=== PATIENT | female | born 1990 | race Caucasian/White ===

== ENCOUNTER 2019-01-22 23:58 | Emergency (ER) | payer OTHER, SELFPAY ==
[2019-01-22 23:59] VITALS: BP 187/100; PULSE 110; RESP 18; TEMP 36.6; O2SAT 98; BMI 23.8
[2019-01-23] VITALS (7 sets, daily range): BP systolic 124–161; BP diastolic 81–106; PULSE 84–106; RESP 16–21; O2SAT 98–100
--- NOTE | 2019-01-23 00:28 | RAD_ITS ---
HISTORY: PATIENT REACHED BACK BEHIND HER AND FELT SHOULDER POP, HX OF DISLOCATION IN DECEMBER 2018 EXAMINATION/TECHNIQUE: XR left shoulder 3 views 0103 hrs. COMPARISON: None FINDINGS: Brassier clothing artifact Anterior dislocation of the left humeral head. No associated fracture is seen. Left AC joint appears preserved. No bony lesions seen. RAD/Shoulder min 2 Views IMPRESSION: Anterior dislocation of the left humeral head. No associated fracture seen. at 0212 Reported and signed by: Elliot Simmons MD Electronically Signed: Elliot Simmons, at 2:11 EDT Tel , Service support ,
--- NOTE | 2019-01-23 00:30 | ED.DCSUM_ITS ---
- ER Visit Summary Date of Service: 01/23/19 Chief Complaint: Left shoulder dislocation History of Present Illness: The patient is a 28 F who presents with concern for left shoulder dislocation. Patient states she was reaching for her cat and she felt her shoulder go out. She has had issues with both shoulders since middle school and has had to have surgeries due to easy dislocation. Patient is currently having severe left shoulder pain. She also is having some paresthesias and loss of use of the left arm. Patient is currently breast- feeding. She denies any other medical problems. Physical Examination: Patient is awake and alert sitting in a chair, appears uncomfortable. Left shoulder is held in a position of mild abduction and internal rotation. Sharp step-off noted to the left shoulder. Radial pulses 2+. Sensation is intact all dermatomes. Patient has AIN/PIN/ulnar nerve function intact. Test Results: Medications Given Discontinued Medications Fentanyl Citrate (Sublimaze (100mcg Ampule)) 50 mcg IV X1 ONE Stop: 01/23/19 00:29 Last Admin: 01/23/19 00:41 Dose: 50 mcg Propofol (Diprivan) 0 mg IV BOLUS X1 ONE Stop: 01/23/19 01:12 Emergency Department Course and Treatment: Discussed the Galeas technique with the patient which would not require any sedation, and she declined. IV was started and patient was given fentanyl for pain. X-ray was performed and an anterior dislocation. Patient was consented for procedural sedation and shoulder reduction. Risk and benefits were discussed with the patient and a family member signed written consent on her behalf. A presedation evaluation was performed. Patient had no history of allergies to any sedation and no history of any sedation complications. Mallampati of 1. Patient had good flex ion and extension of the neck, able to open the mouth adequately, able to put her teeth over her upper lip, good submental and thyrohyoid space. Patient placed on oxygen. Timeout was completed. Patient was given a total of 140 mg of propofol in increments until good sedation was achieved. The shoulder was easily reduced with in-line traction and external rotation. Patient remained hemodynamically stable and had no episodes of desaturation. She was placed in a sling and swath. Postreduction patient had motor function intact, sensation intact, and a 2+ radial pulse. Post x-ray film was obtained and showed successful reduction. Patient is going to follow-up with Dr. Hooks, with whom she is already established. She is breast-feeding and we discussed the pros and cons of pain medication, and she will use Tylenol as needed for mild to moderate pain. She was given a prescription for [place] in case she has severe poorly controlled pain. She will pump and dump if she uses the [place]. Patient was discharged home in improved condition. Treatment Plan: [] Disposition: [] Impression: Left shoulder dislocation, procedural sedation, left shoulder reduction This note was generated with [employer] dictation software. It may contain incorrect words, spelling, and punctuation that were not noted in review of the chart pr ior to signing ED Disposition - Plan for ED Patient: Disposition: Home or Assisted Living Instructions: ED Sedation Procedural Discon, ED Dislocation Shoulder Redu Prescriptions: Hydrocodone Bitart/Apap 5-325 [[place] 5MG-325MG] 1 tab PO Q6H PRN PRN 3 Days #10 tab PRN Reason: Pain Referrals: NOT,DEFINED [NON-STAFF] - Micheal Hooks DO [STAFF PHYSICIAN] - 5-7 Days Additional Instructions: You had a dislocated left shoulder that was reduced under procedural sedation. Please wear the sling and swath until you follow-up with orthopedics for a reevaluation. Call the orthopedic doctor on Friday to set up an appointment for next week. Use [id number] pain medication as needed for mild to moderate pain. Use the hydrocodone-acetaminophen for severe pain. You will want to pump and dump after the hydrocodone medication. If you have any worsening of your condition or any new concerning symptoms, please return immediately to the emergency department for another evaluation.
[2019-01-23] MEDS: fentaNYL 100 MCG/2 ML Ampul 50 MCG IV (00:41)
--- NOTE | 2019-01-23 01:47 | RAD_ITS ---
HISTORY: POST REDUCTION EXAMINATION/TECHNIQUE: XR left shoulder post reduction 2 views 0150 hours COMPARISON: Left shoulder 0103 hrs. FINDINGS: 2 views of left shoulder obtained following successful closed reduction. The left glenohumeral relationship is now normal. No fracture seen. The left AC joint is preserved. RAD/Shoulder min 2 Views IMPRESSION: Successful closed reduction of the left glenohumeral joint. No postreduction fracture seen. at 0214 Reported and signed by: Elliot Simmons MD Electronically Signed: Elliot Simmons, at 2:13 EDT Tel , Service support ,
[2019-01-23] MEDS: Propofol 200 MG/20 ML Vial IV BOLUS (01:58)
[2019-01-23] MEDS: HYDROcodone Bitartrate/Apap 5/325 Tablet PO (02:08)
== END 2019-01-23 02:28 | disposition home or self-care (01) ==
PROVIDERS: Emergency Provider Emergency Medicine; Family Provider Student in an Organized Health Care Education/Training Program; PCP Student in an Organized Health Care Education/Training Program
DX: S43.085A Other dislocation of left shoulder joint, initial encounter (principal); X58.XXXA Exposure to other specified factors, initial encounter; X50.1XXA Overexertion from prolonged static or awkward postures, initial encounter; Y93.9 Activity, unspecified; Y92.9 Unspecified place or not applicable; Y99.9 Unspecified external cause status
CPT/HCPCS: 23650; 73030; 96374; 96375; 99285; J7030; A4216